=== PATIENT | female | born 1975 | race Caucasian/White ===

== ENCOUNTER 2016-11-24 20:38 | Emergency (ER) | payer OTHER ==
[2016-11-24 20:56] VITALS: O2SAT 97
[2016-11-24] MEDS ORDERED: NS 1,000 ML IV ONE (21:48)
--- NOTE | 2016-11-24 21:51 | EDPHY ---
H & P Stated Complaint: Headache Time Seen by Provider: 11/24/16 21:36 HPI/ROS: CHIEF COMPLAINT: Headache HISTORY OF PRESENT ILLNESS: The patient is a 41-year-old female with no significant history or history of headaches who comes to the emergency department her complaining of a severe headache that began around 1 o' clock today. It was not thunderclap and not severe at onset. It gradually increased over about 4 hours. She has photophobia. Nausea and vomiting. She states she vomited 5 times. No fevers. No trauma. No neck pain or stiffness. She denies . No focal weakness numbness or deficits. No slurred speech. She states that her nausea is now gone and her headache is almost completely resolved since coming to the emergency department. She has not had any medication. REVIEW OF SYSTEMS: Constitutional: denies: chills, fever, recent illness, recent injury EENTM: denies: blurred vision, double vision, nose congestion Respiratory: denies: cough, shortness of breath Cardiac: denies: chest pain, irregular heart rate, lightheadedness, palpitations Gastrointestinal/Abdominal: See HPI, denies: abdominal pain, diarrhea, blood streaked stools Genitourinary: denies: dysuria, frequency, hematuria, pain Musculoskeletal: denies: joint pain, muscle pain Skin: denies: lesions, rash, jaundice, bruising Neurological: See HPI denies: numbness, paresthesia, tingling, dizziness, weakness Hematologic/Lymphatic: denies: blood clots, easy bleeding, easy bruising Immunologic/allergic: denies: HIV/AIDS, transplant EXAM: GENERAL: Well-appearing, well-nourished and in no acute distress. HEAD: Atraumatic, normocephalic. EYES: Pupils equal round and reactive to light, extraocular movements intact, sclera anicteric, conjunctiva are normal. ENT: TMs normal, nares patent, oropharynx clear without exudates. Moist mucous membranes. NECK: Normal range of motion, supple without lymphadenopathy or JVD. LUNGS: Breath sounds clear to auscultation bilaterally and equal. No wheezes rales or rhonchi. HEART: Regular rate and rhythm without murmurs, rubs or gallops. ABDOMEN: Soft, nontender, normoactive bowel sounds. No guarding, no rebound. No masses appreciated. BACK: No CVA tenderness, no spinal tenderness, step-offs or deformities EXTREMITIES: Normal range of motion, no pitting or edema. No clubbing or cyanosis. NEUROLOGICAL: Cranial nerves II through XII grossly intact. Normal speech, normal gait. 5/5 strength, normal movement in all extremities, normal sensation PSYCH: Normal mood, normal affect. SKIN: Warm, dry, normal turgor, no visible rashes or lesions. 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, D &C X2, ?CHI X2 FROM SKIING - Family History Significant Family History: No pertinent family hx - Social History Smoking Status: Never smoked Alcohol Use: Sober Drug Use: None Constitutional: Initial Vital Signs Temperature (C) 36.8 C 11/24/16 20:52 Heart Rate 51 L 11/24/16 20:52 Respiratory Rate 18 11/24/16 20:52 Blood Pressure 110/61 11/24/16 20:52 O2 Sat (%) 97 11/24/16 20:52 O2 Delivery Mode Room Air Allergies/Adverse Reactions: doxycycline Allergy (Verified 11/24/16 20:50) Tingling of mouth/throat Home Medications: Medication Instructions Recorded CALCIUM 11/24/16 Fish Oil 11/24/16 Multivitamin 11/24/16 Medical Decision Making - Diagnostics Imaging: Discussed imaging studies w/ call center director Radiologist ED Course/Re-evaluation: We discussed the CT results. The patient's headache is almost gone. She declines LP. She understands the risks involved. She declines medication. She would like to go home and take ibuprofen. I advised her to return if her symptoms return or worsen. We discussed the differential. Discussed follow-up. Differential Diagnosis: Partial list of the Differential diagnosis considered include but were not limited to; migraine headache, tension headache, subarachnoid and although unlikely based on the history and physical exam, I also considered trauma , bacterial meningitis, viral meningitis, tumor, seizure, stroke . I discussed these differential diagnoses and the plan with the patient as well as the usual and expected course. The patient understands that the diagnosis is provisional and that in medicine we are not always correct and that further workup is often warranted. Usual and customary warnings were given. All of the patient's questions were answered. The patient was instructed to return to the emergency department should the symptoms at all worsen or return, otherwise to followup with the physician as we discussed. - Data Points Medications Given: Discontinued Medications Sodium Chloride (Ns) 1,000 mls @ 0 mls/hr IV ONCE ONE; Wide Open PRN Reason: Protocol Stop: 11/24/16 21:49 Last Admin: 11/24/16 22:12 Dose: 1,000 mls Departure - Departure Disposition: Home, Routine, Self-Care Clinical Impression: Headache Qualifiers: Headache type: unspecified Headache chronicity pattern: acute headache Intractability: not intractable Qualified Code(s): R51 - Headache Condition: Fair Instructions: Acute Headache (ED) Referrals: Juan Mendoza MD [Primary Care Provider] - As per Instructions
[2016-11-24 22:52] VITALS: BP 102/54; PULSE 50; RESP 16; TEMP 97.9
== END 2016-11-24 22:51 | disposition home or self-care (01) ==
DX: R51 Headache (principal); E86.9 Volume depletion, unspecified

== ENCOUNTER → 2016-12-31 | Outpatient (CLI) | payer OTHER | LOC: FIMAGING 14:12 | PROVIDERS: ATTEND Obstetrics & Gynecology | DX: Z12.31 Encounter for screening mammogram for malignant neoplasm of breast (principal) | CPT/HCPCS: G0202 ==